=== PATIENT | male | born 1945 | race Caucasian/White ===

== ENCOUNTER 2017-11-19 10:19 | Emergency (ER) | payer MEDICARE, SELFPAY ==
[~2017-11-19] VITALS: Ht 188 cm; Wt 79.4 kg
[~2017-11-19 10:19] MED LIST: ASPI325 PO; ASPI81CH PO; CLON.2 PO; CLOT1TC TOP; DIAZ10 PO; DIAZ5 PO; FLUC100 PO; HYDACE5 PO; LISI20 PO; MARIJUANA; METO50ER PO; MULTI VITAMIN1 EACH PO; PRED10 PO; PROM25 PO; TRIA80TC TOP; [UNRECOGNIZED DRUG - OTHER]; [UNRECOGNIZED DRUG - REMARK]
[2017-11-19 11:31] LABS: BASOPHILS ABSOLUTE AUTO 0.04 K/mm3 (0.00-0.23); BASOPHILS PERCENT AUTO 1 % (0-2); EOSINOPHILS ABSOLUTE AUTO 0.09 K/mm3 (0.00-0.68); EOSINOPHILS PERCENT AUTO 2 % (0-6); Hematocrit 44.3 % (37.0-53.0); Hemoglobin 15.3 g/dL (13.5-17.5); IMMATURE GRAN ABSOLUTE AUTO 0.01 K/mm3 (0.00-0.10); IMMATURE GRAN PERCENT AUTO 0 % (0-1); LYMPHOCYTES ABSOLUTE AUTO 1.67 K/mm3 (0.84-5.20); LYMPHOCYTES PERCENT AUTO 34 % (21-46); MONOCYTES ABSOLUTE AUTO 0.51 K/mm3 (0.16-1.47); MONOCYTES PERCENT AUTO 10 % (4-13); Mean Corpuscular HGB Conc 34.5 g/dL (31.5-36.5); Mean Corpuscular Volume 98 fL (80-100); Mean Platelet Volume 11.4 fL (9.1-12.4); NEUTROPHILS ABSOLUTE AUTO 2.62 K/mm3 (1.96-9.15); NEUTROPHILS PERCENT AUTO 53 % (41-73); Platelet Count 170 K/mm3 (150-400); RDW Coefficient Variation 11.6 % (11.7-14.2); RDW Standard Deviation 42.4 fL (35.1-46.3); White Blood Cell Count 4.94 K/mm3 (4.00-11.30)
[2017-11-19 11:43] LABS: International Normalized Ratio 1.05; Prothrombin Time Results 10.9 Sec (9.7-11.5)
[2017-11-19 11:55] LABS: Alanine Aminotransfer (ALT/SGP 17 U/L (12-78); Albumin, Blood 3.5 g/dL (3.4-5.0); Albumin/Globulin Ratio 0.9 (0.8-1.8); Alk Phos 52 U/L (50-136); Anion Gap 5 mmol/L (6-16); Aspartate Aminotrans (AST/SGOT 14 U/L (12-37); Bilirubin, Total 0.5 mg/dL (0.1-1.0); Blood Urea Nitrogen 9 mg/dL (8-24); Bun/Creatinine Ratio 9.4 (12.0-20.0); CO2, Blood 30 mmol/L (21-32); Calcium, Blood 8.9 mg/dL (8.5-10.1); Chloride, Blood 110 mmol/L (98-108); Creatinine, Blood 0.95 mg/dL (0.60-1.20); Globulin, Blood 4.1 g/dL (2.2-4.0); Glomerular Filtration Rate >60 (60-); Glucose, Blood 96 mg/dL (70-99); Magnesium, Blood 2.1 mg/dL (1.6-2.4); Potassium, Blood 3.8 mmol/L (3.5-5.5); Sodium, Blood 145 mmol/L (136-145); Total Protein, Blood 7.6 g/dL (6.4-8.2); Troponin I <0.015 ng/mL (0.000-0.040)
[2017-11-19 11:57] LABS: Thyroid Stimulating Hormone 0.787 uIU/mL (0.360-4.800)
[2017-11-19 12:51] LABS: Base Excess Venous 2.7 mmol/L; Bicarbonate Venous 25.9 mmol/L (24.0-30.0); PCO2 Venous 47.1 mmHg (38-42); PO2 Venous 46.6 mmHg (38-42); pH Blood Venous 7.38 (7.34-7.37)
[2017-11-19 13:43] LABS: U Amphetamine Screen Not Detected; U Barbituate Screen Not Detected; U Benzodiazapine Screen DETECTED; U Buprenorphine Screen Not Detected; U Cannabinoids Screen Not Detected; U Cocaine Screen Not Detected; U Methadone Screen Not Detected; U Methamphetamine Screen Not Detected; U Opiates Screen Not Detected; U Oxycodone Screen Not Detected; U Phencyclidine Screen Not Detected; U Propoxyphene Screen Not Detected
[2018-01-19] MEDS ORDERED: AMLO5 PO (21:53)
[2018-01-19] MEDS ORDERED: TAMS.4ER PO (21:54)
[2018-01-19] MEDS ORDERED: BUDE6HFA INH (21:56)
[2018-01-19] MEDS ORDERED: OXYC5 PO (21:57)
[2018-07-17] MEDS ORDERED: Hydrocodone-Ap1 EA20 PO (06:16)
[2018-07-17] MEDS ORDERED: Zofran Odt4 MG SL (08:27)
[2018-07-17] MEDS ORDERED: Norco 5-325 Ta1 EACH PO (08:27)
[2018-07-19] MEDS ORDERED: DIAZ10 PO (18:20)
[2018-08-04] MEDS ORDERED: ACET500 PO (15:13)
[2018-08-04] MEDS ORDERED: AMLO5 PO (15:13)
[2018-08-04] MEDS ORDERED: LIDOCAINE1 EACH TOP (15:14)
[2018-08-04] MEDS ORDERED: ONE DAILY ESS400 MCG PO (15:15)
[2018-08-04] MEDS ORDERED: PANT40 PO (15:16)
== END 2017-11-19 15:16 | disposition home or self-care (01) ==
LOC: ER 10:19
PROVIDERS: Emergency Medicine
DX: M48.061 Spinal stenosis, lumbar region without neurogenic claudication (principal); R32 Unspecified urinary incontinence; I10 Essential (primary) hypertension; R53.1 Weakness; Z88.5 Allergy status to narcotic agent; Z79.82 Long term (current) use of aspirin; Z79.899 Other long term (current) drug therapy; F41.9 Anxiety disorder, unspecified; F17.200 Nicotine dependence, unspecified, uncomplicated
CPT/HCPCS: 36415; 70030; 71046; 72148; 80053; 81000; 82803; 83735; 83880; 84443; 84484; 85025; 85610; 93005; 93010; 96374; 99284; J0360

== ENCOUNTER 2017-11-22 10:35 | Emergency (ER) | payer MEDICARE, SELFPAY ==
[~2017-11-22] VITALS: Ht 185.4 cm; Wt 81.7 kg
[2017-11-22] MEDS ORDERED: Tylenol325 MG PO (13:28)
[2018-01-19] MEDS ORDERED: AMLO5 PO (21:53)
[2018-01-19] MEDS ORDERED: TAMS.4ER PO (21:54)
[2018-01-19] MEDS ORDERED: BUDE6HFA INH (21:56)
[2018-01-19] MEDS ORDERED: OXYC5 PO (21:57)
[2018-07-17] MEDS ORDERED: Hydrocodone-Ap1 EA20 PO (06:16)
[2018-07-17] MEDS ORDERED: Zofran Odt4 MG SL (08:27)
[2018-07-17] MEDS ORDERED: Norco 5-325 Ta1 EACH PO (08:27)
[2018-07-19] MEDS ORDERED: DIAZ10 PO (18:20)
[2018-08-04] MEDS ORDERED: ACET500 PO (15:13)
[2018-08-04] MEDS ORDERED: AMLO5 PO (15:13)
[2018-08-04] MEDS ORDERED: LIDOCAINE1 EACH TOP (15:14)
[2018-08-04] MEDS ORDERED: ONE DAILY ESS400 MCG PO (15:15)
[2018-08-04] MEDS ORDERED: PANT40 PO (15:16)
== END 2017-11-22 14:12 | disposition home or self-care (01) ==
LOC: ER 10:35
DX: S41.111A Laceration without foreign body of right upper arm, initial encounter (principal); M54.41 Lumbago with sciatica, right side; M48.061 Spinal stenosis, lumbar region without neurogenic claudication; F43.9 Reaction to severe stress, unspecified; Z88.5 Allergy status to narcotic agent; Z79.82 Long term (current) use of aspirin; F41.9 Anxiety disorder, unspecified; F17.200 Nicotine dependence, unspecified, uncomplicated; W18.30XA Fall on same level, unspecified, initial encounter
CPT/HCPCS: 99284

== ENCOUNTER 2017-11-25 10:29 | Inpatient (IN) | payer MEDICARE, SELFPAY ==
[~2017-11-25] VITALS: Ht 185.4 cm; Wt 78.0 kg
[~2017-11-25 10:29] MED LIST changes: +Tylenol325 MG PO
[2017-11-25 11:51] LABS: BASOPHILS ABSOLUTE AUTO 0.03 K/mm3 (0.00-0.23); BASOPHILS PERCENT AUTO 1 % (0-2); EOSINOPHILS ABSOLUTE AUTO 0.07 K/mm3 (0.00-0.68); EOSINOPHILS PERCENT AUTO 1 % (0-6); Hematocrit 44.3 % (37.0-53.0); Hemoglobin 15.2 g/dL (13.5-17.5); IMMATURE GRAN ABSOLUTE AUTO 0.02 K/mm3 (0.00-0.10); IMMATURE GRAN PERCENT AUTO 0 % (0-1); LYMPHOCYTES ABSOLUTE AUTO 1.47 K/mm3 (0.84-5.20); LYMPHOCYTES PERCENT AUTO 24 % (21-46); MONOCYTES ABSOLUTE AUTO 0.51 K/mm3 (0.16-1.47); MONOCYTES PERCENT AUTO 8 % (4-13); Mean Corpuscular HGB 33.7 pg (26.0-34.0); Mean Corpuscular HGB Conc 34.3 g/dL (31.5-36.5); Mean Corpuscular Volume 98 fL (80-100); Mean Platelet Volume 11.1 fL (9.1-12.4); NEUTROPHILS PERCENT AUTO 66 % (41-73); Platelet Count 167 K/mm3 (150-400); RDW Coefficient Variation 11.6 % (11.7-14.2); RDW Standard Deviation 41.8 fL (35.1-46.3); Red Blood Cell Count 4.51 M/mm3 (4.30-5.90)
[2017-11-25 12:17] LABS: Alanine Aminotransfer (ALT/SGP 15 U/L (12-78); Albumin, Blood 3.5 g/dL (3.4-5.0); Albumin/Globulin Ratio 0.9 (0.8-1.8); Alk Phos 55 U/L (50-136); Anion Gap 7 mmol/L (6-16); Aspartate Aminotrans (AST/SGOT 15 U/L (12-37); Bilirubin, Total 0.6 mg/dL (0.1-1.0); Blood Urea Nitrogen 8 mg/dL (8-24); CO2, Blood 25 mmol/L (21-32); Calcium, Blood 8.8 mg/dL (8.5-10.1); Chloride, Blood 107 mmol/L (98-108); Creatinine, Blood 0.99 mg/dL (0.60-1.20); Ethanol (Alcohol), Blood, Med <3 mg/dL; Globulin, Blood 3.7 g/dL (2.2-4.0); Glomerular Filtration Rate >60 (60-); Glucose, Blood 106 mg/dL (70-99); Magnesium, Blood 2.2 mg/dL (1.6-2.4); Phosphorus, Blood 3.1 mg/dL (2.5-4.9); Potassium, Blood 3.9 mmol/L (3.5-5.5); Sodium, Blood 139 mmol/L (136-145); Total Protein, Blood 7.2 g/dL (6.4-8.2)
[2017-11-25 12:21] LABS: Thyroid Stimulating Hormone 0.815 uIU/mL (0.360-4.800)
[2017-11-26 04:57] LABS: BASOPHILS ABSOLUTE AUTO 0.01 K/mm3 (0.00-0.23); BASOPHILS PERCENT AUTO 0 % (0-2); EOSINOPHILS PERCENT AUTO 0 % (0-6); Hematocrit 45.9 % (37.0-53.0); Hemoglobin 15.8 g/dL (13.5-17.5); IMMATURE GRAN ABSOLUTE AUTO 0.02 K/mm3 (0.00-0.10); IMMATURE GRAN PERCENT AUTO 0 % (0-1); LYMPHOCYTES ABSOLUTE AUTO 0.75 K/mm3 (0.84-5.20); LYMPHOCYTES PERCENT AUTO 16 % (21-46); MONOCYTES ABSOLUTE AUTO 0.14 K/mm3 (0.16-1.47); MONOCYTES PERCENT AUTO 3 % (4-13); Mean Corpuscular HGB 33.1 pg (26.0-34.0); Mean Corpuscular HGB Conc 34.4 g/dL (31.5-36.5); Mean Corpuscular Volume 96 fL (80-100); Mean Platelet Volume 11.2 fL (9.1-12.4); NEUTROPHILS ABSOLUTE AUTO 3.76 K/mm3 (1.96-9.15); NEUTROPHILS PERCENT AUTO 80 % (41-73); Platelet Count 182 K/mm3 (150-400); RDW Coefficient Variation 11.3 % (11.7-14.2); RDW Standard Deviation 39.8 fL (35.1-46.3); Red Blood Cell Count 4.78 M/mm3 (4.30-5.90); White Blood Cell Count 4.68 K/mm3 (4.00-11.30)
[2017-11-26 05:14] LABS: International Normalized Ratio 1.05; Prothrombin Time Results 10.9 Sec (9.7-11.5)
[2017-11-26 05:16] LABS: Alanine Aminotransfer (ALT/SGP 12 U/L (12-78); Albumin, Blood 3.3 g/dL (3.4-5.0); Albumin/Globulin Ratio 0.8 (0.8-1.8); Alk Phos 53 U/L (50-136); Anion Gap 8 mmol/L (6-16); Aspartate Aminotrans (AST/SGOT 12 U/L (12-37); Bilirubin, Total 0.6 mg/dL (0.1-1.0); Blood Urea Nitrogen 10 mg/dL (8-24); Bun/Creatinine Ratio 10.6 (12.0-20.0); CO2, Blood 27 mmol/L (21-32); Calcium, Blood 9.2 mg/dL (8.5-10.1); Chloride, Blood 106 mmol/L (98-108); Creatinine, Blood 0.95 mg/dL (0.60-1.20); Glomerular Filtration Rate >60 (60-); Glucose, Blood 148 mg/dL (70-99); Potassium, Blood 4.1 mmol/L (3.5-5.5); Sodium, Blood 141 mmol/L (136-145); Total Protein, Blood 7.3 g/dL (6.4-8.2)
[2017-11-27 13:17] LABS: Source, Urine Catheter
[2017-11-27 13:36] LABS: Bilirubin, Urine Neg (Neg); Blood, Urine Neg (Neg); Glucose Qualitative, Urine Neg (Neg); Ketones, Urine Neg (Neg); Leukocyte Esterase, Urine Neg (Neg); Nitrite, Urine Neg (Neg); Protein, Urine Neg (Neg); Specific Gravity, Urine 1.015 (1.003-1.022); Urobilinogen, Urine NORM (Normal)
[2017-11-27 13:50] LABS: Appearance, Urine Clear (Clear); Color, Urine Yellow (P-Yellow)
[2017-11-28] MEDS ORDERED: Acetaminophen325 M1 PO (14:00)
[2017-11-28] MEDS ORDERED: ESCI10 PO (14:01)
[2017-11-28] MEDS ORDERED: THERAPEUTIC-M1 EAC3 PO (14:02)
[2017-11-28] MEDS ORDERED: GABA100 PO (14:02)
[2017-11-28] MEDS ORDERED: DIAZ2 PO (14:02)
[2018-01-19] MEDS ORDERED: AMLO5 PO (21:53)
[2018-01-19] MEDS ORDERED: TAMS.4ER PO (21:54)
[2018-01-19] MEDS ORDERED: BUDE6HFA INH (21:56)
[2018-01-19] MEDS ORDERED: OXYC5 PO (21:57)
[2018-07-17] MEDS ORDERED: Hydrocodone-Ap1 EA20 PO (06:16)
[2018-07-17] MEDS ORDERED: Zofran Odt4 MG SL (08:27)
[2018-07-17] MEDS ORDERED: Norco 5-325 Ta1 EACH PO (08:27)
[2018-07-19] MEDS ORDERED: DIAZ10 PO (18:20)
[2018-08-04] MEDS ORDERED: AMLO5 PO (15:13)
[2018-08-04] MEDS ORDERED: ACET500 PO (15:13)
[2018-08-04] MEDS ORDERED: LIDOCAINE1 EACH TOP (15:14)
[2018-08-04] MEDS ORDERED: ONE DAILY ESS400 MCG PO (15:15)
[2018-08-04] MEDS ORDERED: PANT40 PO (15:16)
== END 2017-12-01 14:46 | DRG 552 ==
LOC: DELPENDDIS → ER 10:29 → MEDS 16:56 → ENPENDDIS 11-28 12:07 → MEDS 12-01 14:46
PROVIDERS: Emergency Medicine; Family Medicine
PROC: 3E0234Z Introduction of Serum, Toxoid and Vaccine into Muscle, Percutaneous Approach (ICD-10-PCS; principal; 2017-11-26)
DX: M48.062 Spinal stenosis, lumbar region with neurogenic claudication (principal); G82.20 Paraplegia, unspecified; F03.90 Unspecified dementia, unspecified severity, without behavioral disturbance, psychotic disturbance, mood disturbance, and anxiety; R44.3 Hallucinations, unspecified; N40.1 Benign prostatic hyperplasia with lower urinary tract symptoms; R33.8 Other retention of urine; M47.9 Spondylosis, unspecified; M43.16 Spondylolisthesis, lumbar region; F10.20 Alcohol dependence, uncomplicated; F32.9 Major depressive disorder, single episode, unspecified; I10 Essential (primary) hypertension; Z23 Encounter for immunization; R62.7 Adult failure to thrive; F17.210 Nicotine dependence, cigarettes, uncomplicated
CPT/HCPCS: 36415; 51702; 70450; 72120; 80053; 81003; 83735; 84100; 84443; 85025; 85610; 93005; 93010; 96374; 97116; 97162; 97165; 97535; 99285; G0480; G8978; G8979; G8987; G8988; J0360; J1100; J2060

== ENCOUNTER 2019-10-18 09:40 | Emergency (ER) | payer SELFPAY ==
[~2019-10-18] VITALS: Ht 182.9 cm; Wt 77.1 kg
[~2019-10-18 09:40] MED LIST changes: +ACET500 PO; +AMLO5 PO; +Acetaminophen325 M1 PO; +BUDE6HFA INH; +DIAZ2 PO; +ELIQUIS2.5 MG PO; +ESCI10 PO; +GABA100 PO; +Hydrocodone-Ap1 EA20 PO; +LIDOCAINE1 EACH TOP; +Norco 5-325 Ta1 EACH PO; +ONE DAILY ESS400 MCG PO; +OXYC5 PO; +PANT40 PO; +TAMS.4ER PO; +THERAPEUTIC-M1 EAC3 PO; +Zofran Odt4 MG SL
[2019-10-18] MEDS ORDERED: ZESTRIL40 M1 PO (09:57)
[2019-10-18] MEDS ORDERED: DIAZ10 PO (09:57)
[2019-10-18] MEDS ORDERED: AMLO10 PO (09:57)
== END 2019-10-18 13:00 | disposition home or self-care (01) ==
LOC: ER 09:40
DX: S32.591A Other specified fracture of right pubis, initial encounter for closed fracture (principal); F41.9 Anxiety disorder, unspecified; F17.210 Nicotine dependence, cigarettes, uncomplicated; Z88.5 Allergy status to narcotic agent; Z79.899 Other long term (current) drug therapy; Z79.01 Long term (current) use of anticoagulants; W19.XXXA Unspecified fall, initial encounter
CPT/HCPCS: 73502; 99283-25

== ENCOUNTER 2019-10-20 12:12 | Observation (INO) | payer SELFPAY ==
[~2019-10-20] VITALS: Ht 188 cm; Wt 74.4 kg
[~2019-10-20 12:12] MED LIST changes: +AMLO10 PO; +ZESTRIL40 M1 PO
[2019-10-20 12:58] LABS: BASOPHILS ABSOLUTE AUTO 0.03 K/mm3 (0.00-0.23); BASOPHILS PERCENT AUTO 0 % (0-2); EOSINOPHILS ABSOLUTE AUTO 0.06 K/mm3 (0.00-0.68); EOSINOPHILS PERCENT AUTO 1 % (0-6); Hematocrit 42.3 % (37.0-53.0); Hemoglobin 14.2 g/dL (13.5-17.5); IMMATURE GRAN ABSOLUTE AUTO 0.03 K/mm3 (0.00-0.10); IMMATURE GRAN PERCENT AUTO 0 % (0-1); LYMPHOCYTES ABSOLUTE AUTO 1.43 K/mm3 (0.84-5.20); LYMPHOCYTES PERCENT AUTO 18 % (21-46); MONOCYTES ABSOLUTE AUTO 0.71 K/mm3 (0.16-1.47); MONOCYTES PERCENT AUTO 9 % (4-13); Mean Corpuscular HGB 33.1 pg (26.0-34.0); Mean Corpuscular HGB Conc 33.6 g/dL (31.5-36.5); Mean Corpuscular Volume 99 fL (80-100); Mean Platelet Volume 11.3 fL (9.1-12.4); NEUTROPHILS ABSOLUTE AUTO 5.57 K/mm3 (1.96-9.15); NEUTROPHILS PERCENT AUTO 71 % (41-73); Platelet Count 206 K/mm3 (150-400); RDW Coefficient Variation 12.5 % (11.7-14.2); Red Blood Cell Count 4.29 M/mm3 (4.30-5.90); White Blood Cell Count 7.83 K/mm3 (4.00-11.30)
[2019-10-20 13:31] LABS: Alanine Aminotransfer (ALT/SGP 15 U/L (12-78); Albumin, Blood 3.7 g/dL (3.4-5.0); Albumin/Globulin Ratio 0.9 (0.8-1.8); Alk Phos 67 U/L (50-136); Anion Gap 7 mmol/L (6-16); Aspartate Aminotrans (AST/SGOT 12 U/L (12-37); Bilirubin, Total 0.7 mg/dL (0.1-1.0); Blood Urea Nitrogen 14 mg/dL (8-24); Bun/Creatinine Ratio 13.6 (12.0-20.0); CO2, Blood 26 mmol/L (21-32); Calcium, Blood 9.1 mg/dL (8.5-10.1); Chloride, Blood 106 mmol/L (98-108); Creatinine, Blood 1.03 mg/dL (0.60-1.20); Globulin, Blood 4.1 g/dL (2.2-4.0); Glomerular Filtration Rate >60 (60-); Glucose, Blood 101 mg/dL (70-99); Potassium, Blood 3.6 mmol/L (3.5-5.5); Sodium, Blood 139 mmol/L (136-145); Total Protein, Blood 7.8 g/dL (6.4-8.2); Troponin I <0.015 ng/mL (0.000-0.040)
[2019-10-20 18:46] LABS: Source, Urine Clean Catch
[2019-10-20 18:52] LABS: Appearance, Urine Clear (Clear); Bilirubin, Urine Neg (Neg); Blood, Urine Neg (Neg); Color, Urine Amber (P-Yellow); Glucose Qualitative, Urine Neg (Neg); Ketones, Urine 1+ (Neg); Leukocyte Esterase, Urine 1+ (Neg); Nitrite, Urine Neg (Neg); Protein, Urine 2+ (Neg); Urobilinogen, Urine 1+ (Normal)
[2019-10-20 19:02] LABS: Mucus Light (0-Heavy); Red Blood Cells, Urine 0-2 /hpf (0-2)
[2019-10-20 19:03] LABS: Bacteria Few /hpf; Squamous Epithelial Cells Rare /hpf (Few)
--- NOTE | 2019-10-21 04:39 | NUR ---
SHIFT SUMMARY PT ARRIVED TO FLOOR IN NO DISTRESS. PT STATED HE WAS TIRED AND WANTED TO SLEEP. PT HAD NO COMPLAINTS OF PAIN DURING SHIFT. PT HAS BEEN SLEEPING WELL T/O SHIFT. PT IS CURRENTLY SLEEPING AND BREATHING EASY. CALL LIGHT IN REACH.
[2019-10-21] MEDS ORDERED: MULTIVITAMINS1 EAC3 PO (08:05)
--- NOTE | 2019-10-21 08:43 | NUR ---
HOME MEDS SENT TO PHARMACY AND MANZO AND WALLET SENT WITH SECURITY TO BE LOCKED IN SAFE.
--- NOTE | 2019-10-21 13:48 | NUR ---
DISCHARGE: PATIENT LEFT AT 1350
--- NOTE | 2019-10-21 17:28 | NUR ---
SHIFT SUMMARY PATIENT A/O. MAKES NEEDS KNOWN. CALL LIGHT IN REACH OF PATIENT. PATIENT AMBULATED WITH STAFF DURING SHIFT AND SEEMED TO TOLERATE WELL WITH FWW. PAIN MANAGED THROUGH MEDICATIONS AND REPOSOTIONS. PATIENT APPETITE PRESENT. 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 LN TO CONTINUE TO MONITOR.
--- NOTE | 2019-10-22 04:41 | NUR ---
SHIFT SUMMARY PT HAS SLEPT T/O SHIFT. PT HAD SOME HIP/ L RIB DISCOMFORT. PT TX PER EMAR AND WAS ABLE TO SLEEP. PT HAD NO OTHER ISSUES REPORTED. PT CURRENTLY SLEEPING AND BREATHING EASY. CALL LIGHT IN REACH.
--- NOTE | 2019-10-22 13:44 | NUR ---
THE PATIENT'S RIDE STATED HE WOULD BE ABLE TO SHOW UP IN AN HOUR TO TAKE THE PATIENT HOME. THE PATIENT WANTED TO WAIT FOR HIS RIDE OUTSIDE IN THE WHEELCHAIR SO HE COULD SMOKE. RN DISCOURAGED THIS ASKING THAT HE WAIT FOR HIS RIDE UP ON THE MEDICAL UNIT SO HE WOULD BE MONITORED UNTIL THEN. PATIENT REFUSED AND DEMANDED TO BE ESCORTED DOWNSTAIRS.
== END 2019-10-22 13:37 | disposition home health service (06) ==
LOC: ER 12:12 → MEDS 12:13 → ER 19:59 → MEDS 20:06
PROVIDERS: Emergency Medicine; Physician Assistant; ADMIT Internal Medicine
DX: S32.9XXA Fracture of unspecified parts of lumbosacral spine and pelvis, initial encounter for closed fracture (principal); R29.6 Repeated falls; R07.89 Other chest pain; M19.90 Unspecified osteoarthritis, unspecified site; G89.29 Other chronic pain; M48.00 Spinal stenosis, site unspecified; I48.0 Paroxysmal atrial fibrillation; I10 Essential (primary) hypertension; J44.9 Chronic obstructive pulmonary disease, unspecified; B19.20 Unspecified viral hepatitis C without hepatic coma; F32.9 Major depressive disorder, single episode, unspecified; F41.9 Anxiety disorder, unspecified; F17.210 Nicotine dependence, cigarettes, uncomplicated; Z79.01 Long term (current) use of anticoagulants; Z79.899 Other long term (current) drug therapy; Z88.5 Allergy status to narcotic agent; Z98.890 Other specified postprocedural states; W19.XXXA Unspecified fall, initial encounter
CPT/HCPCS: 36415; 71045; 80053; 81001; 84484; 85025; 87086; 93005; 93010; 97110; 97116; 97162; 97166; 97535; 99285-25; A9270; A9270-GY; G0378

== ENCOUNTER → 2020-08-01 | Outpatient (CLI) | payer OTHER ==
[~2020-08-01] MED LIST changes: +MULTIVITAMINS1 EAC3 PO
[2020-08-01 12:48] LABS: BASOPHILS ABSOLUTE AUTO 0.04 K/mm3 (0.00-0.23); BASOPHILS PERCENT AUTO 1 % (0-2); EOSINOPHILS PERCENT AUTO 2 % (0-6); Hematocrit 38.8 % (37.0-53.0); Hemoglobin 12.9 g/dL (13.5-17.5); IMMATURE GRAN ABSOLUTE AUTO 0.01 K/mm3 (0.00-0.10); IMMATURE GRAN PERCENT AUTO 0 % (0-1); LYMPHOCYTES ABSOLUTE AUTO 1.24 K/mm3 (0.84-5.20); LYMPHOCYTES PERCENT AUTO 21 % (21-46); MONOCYTES ABSOLUTE AUTO 0.29 K/mm3 (0.16-1.47); MONOCYTES PERCENT AUTO 5 % (4-13); Mean Corpuscular HGB 32.1 pg (26.0-34.0); Mean Corpuscular HGB Conc 33.2 g/dL (31.5-36.5); Mean Corpuscular Volume 97 fL (80-100); Mean Platelet Volume 10.8 fL (9.1-12.4); NEUTROPHILS ABSOLUTE AUTO 4.15 K/mm3 (1.96-9.15); NEUTROPHILS PERCENT AUTO 71 % (41-73); Platelet Count 172 K/mm3 (150-400); RDW Coefficient Variation 12.5 % (11.7-14.2); RDW Standard Deviation 43.9 fL (35.1-46.3); Red Blood Cell Count 4.02 M/mm3 (4.30-5.90); White Blood Cell Count 5.83 K/mm3 (4.00-11.30)
[2020-08-01 13:26] LABS: Alanine Aminotransfer (ALT/SGP 17 U/L (12-78); Albumin, Blood 3.2 g/dL (3.4-5.0); Albumin/Globulin Ratio 0.9 (0.8-1.8); Alk Phos 78 U/L (50-136); Anion Gap 5 mmol/L (6-16); Aspartate Aminotrans (AST/SGOT 8 U/L (12-37); Bilirubin, Total 0.6 mg/dL (0.1-1.0); Blood Urea Nitrogen 18 mg/dL (8-24); Bun/Creatinine Ratio 16.8 (12.0-20.0); CHOL/HDL RATIO 1.9; CO2, Blood 27 mmol/L (21-32); Chloride, Blood 110 mmol/L (98-108); Cholesterol 100 mg/dL (50-200); Creatinine, Blood 1.07 mg/dL (0.60-1.20); Globulin, Blood 3.4 g/dL (2.2-4.0); Glomerular Filtration Rate >60 (60-); Glucose, Blood 133 mg/dL (70-99); HDL Cholesterol 52 mg/dL (>39); LDL/HDL RATIO 0.7; Low Density Lipoprotein Chol 36 mg/dL (0-110); Potassium, Blood 3.9 mmol/L (3.5-5.5); Sodium, Blood 142 mmol/L (136-145); Total Protein, Blood 6.6 g/dL (6.4-8.2); Triglycerides 59 mg/dL (30-160); Very Low Density Lipoprot Chol 12 mg/dL (6-32)
== END | disposition home or self-care (01) ==
LOC: EDSTATUS 09:20 → LAB RH 10:16
PROVIDERS: Nurse Practitioner
DX: S12.191D Other nondisplaced fracture of second cervical vertebra, subsequent encounter for fracture with routine healing (principal); J44.9 Chronic obstructive pulmonary disease, unspecified; I10 Essential (primary) hypertension
CPT/HCPCS: 80053; 80061; 82306; 85025